=== PATIENT | male | born 1955 | race Caucasian/White ===

== ENCOUNTER 2018-05-11 18:24 | Emergency (ER) | payer BC ==
[2018-05-11 18:43] VITALS: BP 132/86; TEMP 98.6; BMI 29.1
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
[2018-05-11 19:45] VITALS: PULSE 100
== END 2018-05-11 19:50 | disposition home or self-care (01) ==
LOC: FER 18:24
DX: V43.52XA Car driver injured in collision with other type car in traffic accident, initial encounter (principal); Y93.89 Activity, other specified; Y92.410 Unspecified street and highway as the place of occurrence of the external cause; Z85.47 Personal history of malignant neoplasm of testis; I10 Essential (primary) hypertension; E78.00 Pure hypercholesterolemia, unspecified; H91.8X2 Other specified hearing loss, left ear
CPT/HCPCS: 70450-TC; 99282-25